=== PATIENT | female | born 1965 | race Caucasian/White ===

== ENCOUNTER 2018-08-04 07:41 | Day surgery (SDC) | payer OTHER, SELFPAY ==
[2018-08-04] VITALS (7 sets, daily range): BP systolic 107–147; BP diastolic 72–96; PULSE 71–107; RESP 14–18; TEMP 36.3–36.8; O2SAT 97–99; BMI 26.6
--- NOTE | 2018-08-04 | PATH_ITS ---
[facility] Accession Number: [id number] . 01 Material submitted: . SUBMUCOSAL MASS OF THE CECUM . 02 Diagnosis: Cecum, Submucosal Lesion, Biopsy: Colonic mucosa with no diagnostic abnormality, please see comment. Negative for serrated lesion, dysplasia or malignancy. MRV/08/07/2018 . 02 Comment: The endoscopic impression of a submucosal mass is noted; however, there is no submucosal tissue present for evaluation. . 02 Electronically signed: . Ramesh Ward MD, PhD, Pathologist NPI- [id number] . 01 Gross description: . SUBMUCOSAL MASS OF THE CECUM: Received in formalin are 2 fragment(s) of johns, soft tissue measuring 0.3 x 0.2 x 0.1 cm to 0.2 x 0.2 x 0.1 cm submitted entirely in 1 cassette(s) /CKI /CKI . 02 Pathologist provided ICD-10: D12.0 . 02 CPT . 538217 Specimen Comment: A duplicate report has been generated due to demographic updates. Performed at: 01 [facility] [address], [place], [place] [id number] MD Serg Veloz MD Phone: [phone] Performed at: 02 [facility] [address] [place], [place] [id number] MD Alyssa Echavarria MD Phone: [phone]
--- NOTE | 2018-08-04 08:16 | PM.HP.1 ---
History of Present Illness Date Patient Seen: 08/04/18 Time Patient Seen: 08:00 Chief complaint: [id number] SCREENING COLONOSCOPY Narrative: Patient is a woman here for screening colonoscopy. No family history colon cancer. No blood in her stool. She is this is her 1st colonoscopy as she just turned 52. Patient History Medical History Atypical lobular hyperplasia (ALH) of breast (Chronic) Family & Social History Social History: household members spouse Tobacco & Substance use: Smoking Status Never smoker Meds Home Medications Medication Instructions Recorded Confirmed Type anastrozole 1 mg tablet 1 mg PO DAILY 05/04/18 05/04/18 History Allergies Allergy/AdvReac Type Severity Reaction Status Date / Time Sulfa (Sulfonamide Allergy Unknown Unverified 01/04/18 12:36 Antibiotics) [SULFA (SULFONAMIDE ANTIBIOTICS)] Review of Systems Review of Systems All systems reviewed & are unremarkable except as noted in HPI and below Exam Vital Signs (past 8 hours): - 08/04/18 08:05 Temperature 98.2 F Pulse Rate 93 H Respiratory Rate 18 Blood Pressure 147/96 H Pulse Oximetry 99 Oxygen Delivery Method Room Air Narrative Exam Narrative: coOperative no apparent distress. Lungs are clear to auscultation no rales or rhonchi. heart regular rate and rhythm no murmur gallop abdomen is soft nontender without mass. Learn and oriented. Assessment & Plan (1) Screening for colon cancer: Current visit: Yes Status: Acute Plan: Assessment/Plan Narrative: Patient here for a screening colonoscopy. I have discussed the procedure and the rationale with the patient including risks of bleeding, perforation which would necessitate a major operation, failure to find remove all lesions and the potential to tattoo. They appeared to understand and wished to proceed.
--- NOTE | 2018-08-04 08:22 | PM.PREOP ---
Pre-operative Note Interval Note Pre-op Check: Yes History & Physical exam performed today by Physician Changes: No
[2018-08-04] MEDS: SODIUM CHLORIDE 0.9% 1,000 ML 200 ML IV (08:32)
[2018-08-04] MEDS: MIDAZOLAM 5 MG/5 ML VIAL IV (08:46)
[2018-08-04] MEDS: fentaNYL 250 MCG/5 ML INJ IV (08:47)
--- NOTE | 2018-08-04 09:33 | P.OP.ENDO_ITS ---
Operative Date/Time/Diagnoses Date of procedure: 08/04/18 Time of procedure: 09:17 Pre-op diagnosis: Screening exam Post-op diagnosis: same (Internal hemorrhoids. Submucosal cecal mass.) Procedure & Clinicians Study performed: Colonoscopy with cold biopsy Same procedure as scheduled: Yes Indications: Screening for colon cancer Surgeon: Malachi Allen Procedure Notes SCOAP/Timeout: Performed Procedure in detail: The patient was placed in the left lateral decubitus position and underwent IV sedation directed by the surgeon consisting of fentanyl and Versed. Digital exam was remarkable for some visible small external hemorrhoids. The scope was inserted and advanced through the rectum into the sigmoid, descending, transverse, and ascending colon. There was early looping in the process and pressure had to be applied and then a stiffener inserted in order to reach the cecum.. The cecum was reached identified by the ileocecal valve and the appendiceal opening. Adjacent to but not involving the appendiceal opening was a submucosal mass. It was rounded and well- circumscribed. When pushed on with a biopsy forcep it did not give like a lipoma but felt solid. It was not the scope visible through the wall. I took biopsies of the mucosal surface but decided not to take deep bites because I did not know if this was attached or just adjacent to the colon and fixed. Deep bites might have caused the perforation if just adjacent. It was not freely mobile in the wall of the colon. The scope was gradually brought out. No Polyps were found . The scope ultimately was retroflexed in the rectum. The appearance was remarkable for internal hemorrhoids without ulceration. The scope was removed and the patient tolerated the procedure well Scope withdrawal time: 10 min Sedation minutes: 33 Recommendations: Colonscopy in 5 years and Other recommendation (CT scan of the abdomen and pelvis. Probable cecal resection.(suspect GIST)) Plan for aftercare: See recommendations above Follow up: weeks (One) Disposition: PACU
--- NOTE | 2018-08-04 09:38 | SUR.PHASEI ---
0935: Pt is fully awake at this time, s/p colonoscopy. Pt denies pain, hemodynamically stable and ready to transition to Phase II Care at this time
== END 2018-08-04 10:10 | disposition home or self-care (01) ==
PROVIDERS: PCP Specialist; Visit Provider Specialist
PROC: 0DJD8ZZ Inspection of Lower Intestinal Tract, Via Natural or Artificial Opening Endoscopic (ICD-10-PCS; CPT 45378; principal; 2018-08-04 08:45)
DX: Z12.11 Encounter for screening for malignant neoplasm of colon (principal); K64.8 Other hemorrhoids; D12.0 Benign neoplasm of cecum
CPT/HCPCS: 45380; 99152; 99153; J2250; J3010

== ENCOUNTER → 2018-08-10 08:18 | Outpatient (CLI) | payer OTHER, SELFPAY ==
--- NOTE | 2018-08-10 08:54 | DI.CT.S_ITS ---
PROCEDURE: CT ABDOMEN PELVIS W CON INDICATIONS: Submucosal cecal mass suspect GI ST tumor. Rule out others TECHNIQUE: After the administration of oral and intravenous contrast, 5 mm thick sections acquired from the diaphragms to the symphysis. 5 mm thick coronal and sagittal reformats were performed. For radiation dose reduction, the following was used: automated exposure control, adjustment of mA and/or kV according to patient size. COMPARISON: None. FINDINGS: Image quality: Excellent. ABDOMEN: Lung bases: Lung bases are clear. Heart size is normal. Solid organs: Liver is normal in size and enhancement. Gallbladder is within normal limits. Biliary system is non-dilated. Pancreas enhances normally. Spleen is normal in size and enhancement. No adrenal nodules. Kidneys are normal in size and enhancement, without hydronephrosis. Peritoneum and bowel: Stomach, small bowel, and colon loops are normal in caliber and wall thickness. The patient's known submucosal cecal mass is not seen by CT. Contrast has not yet reached the colon. The appendix is normal. No free fluid or air. Nodes and vessels: No retroperitoneal or mesenteric adenopathy. Aorta and inferior vena cava are normal in caliber. Miscellaneous: No ventral hernias. PELVIS: Genitourinary: Bladder wall thickness is normal. 36 mm diameter mass within the right aspect of the uterus is present, consistent with a fibroid. Miscellaneous: No inguinal hernias or adenopathy. Bones: No suspicious bony lesions. No vertebral body compression fractures. IMPRESSION: 1. Nonvisualization of the patient's known submucosal cecal mass. 2. No evidence of metastatic disease to the abdomen, nor pelvis. 3. Right uterine fibroid. If the patient demonstrates symptoms referable to uterine fibroids, she may be a candidate for uterine fibroid embolization. Interventional radiology consultation can be obtained, if clinically indicated. Dictated by: Mitchell Mayes M.D. on 08/10/2018 at 10:02 Approved by: Mitchell Mayes M.D. on 08/10/2018 at 10:06
== END ==
PROVIDERS: PCP Specialist; Visit Provider Specialist
DX: D37.4 Neoplasm of uncertain behavior of colon (principal); D25.9 Leiomyoma of uterus, unspecified
CPT/HCPCS: 74177; Q9967

== ENCOUNTER 2018-09-28 06:40 | Inpatient (IN) | payer OTHER, SELFPAY ==
[2018-09-04 12:54] VITALS: BMI 26.6
[2018-09-28] VITALS (17 sets, daily range): BP systolic 92–143; BP diastolic 57–84; PULSE 66–95; RESP 12–16; TEMP 36.2–36.9; O2SAT 90–99; BMI 26.6
--- NOTE | 2018-09-28 | PATH_ITS ---
[facility] Accession Number: [id number] . 01 Material submitted: . COLON-CECUM . 01 Clinical history: . COLON-CECUM- STITCH PABLO OF SUBMUCOSAL MASS . 02 Diagnosis: Colon, Resection: 1. Ileocecal valve with prominent submucosal mature adipose tissue, consistent with lipoma. 2. Appendix with no diagnostic abnormality. 3. No evidence of atypia, epithelial dysplasia, or malignancy. 4. Please see comment. MRV/10/04/2018 . 02 Comment: The specimen was reviewed by the PA as well as Dr. Echavarria, who did not identify the abnormality described by the surgeon. The entire area beneath the stitch was submitted for evaluation and shows redundant colonic mucosa on biopsy with no submucosal mass or lesion. There is no evidence of atypia or dysplasia. . 02 Electronically signed: . Alyssa Echavarria MD, Pathologist NPI- [id number] . 01 Gross description: . Received in formalin labeled with the patient's name and colon, stitch pablo region of submucosal mass is a portion of right colon. The specimen is received stapled at the proximal margin and partially opened along the rest of the colon. This specimen includes 2 cm of terminal ileum, 6 cm of colon and a 6.0 x 0.5 cm appendix. The serosa is johns-dennis and smooth. The specimen is further opened to reveal a johns-dennis glistening mucosa with prominent folds. There is a suture on the mucosa which is received placed in the cecal pouch. No lesions are observed near the suture. The serosa and soft tissue under the suture are inked blue. The suture is located directly overlying the distal stapled mucosal margin. Sectioning reveals no lesions on cut surface adjacent to the suture as well. No lesions are present on the remaining mucosal surfaces. The suture is located 1.1 cm from the distal margin and 5.0 cm from the proximal margin. The appendix has a smooth johns serosa. Sectioning through it reveals a pinpoint lumen. Mexican Food Maker Hand sections are submitted as follows: A1 entire proximal margin; A2 entire distal margin; A3-A6 entire mucosal surface full thickness sections surrounding the suture; A6 is appendix. The specimen was also reviewed by Dr. Echavarria. Additional sections were submitted as follows: A7 - mesenteric lymph nodes; A8-A9 - random colon and ileocecal valve sections. (SB:[id number]) (JL:[id number]) / . 02 Pathologist provided ICD-10: D17.9 . 02 CPT . 696340 Performed at: [facility] [address] [id number] MD Serg Veloz MD Phone: [phone] [facility]: [facility] [address] [place], [place] [id number] MD Alyssa Echavarria MD Phone: [phone]
[2018-09-28 07:22] LABS: Add Manual Diff / Slide Review NO; Basophils Percent Auto 0.7 % (0-2); Hematocrit 46.3 % (36-46); Hemoglobin 15.9 g/dL (12.0-16.0); Lymphocytes Percent Auto 32.4 % (25-40); Mean Corpuscular HGB Conc 34.4 % (30-36); Mean Corpuscular Hemoglobin 32.2 PG (26-34); Mean Corpuscular Volume 93.6 fL (80-100); Monocytes Percent Auto 7.8 % (3-14); Neutrophils Absolute Auto 3700 /uL (1500-7000); Neutrophils Percent Auto 57.1 % (50-75); Platelet Count 235 X10^3/uL (150-400); Red Blood Cell Count 4.95 X10^6/uL (4.0-5.2); Red Cell Distribution Width 13.4 % (11.6-14.8); White Blood Cell Count 6.5 X10^3/uL (4.5-11.0)
[2018-09-28] MEDS: ENOXAPARIN 40 MG/0.4 ML SYRINGE SUBCUT (07:29)
[2018-09-28] MEDS: NEOMYCIN 500 MG TABLET 1000 MG PO ×3 (07:29→13:07)
[2018-09-28] MEDS: ERYTHROMYCIN BASE 500 MG TABLET 1000 MG PO ×3 (07:29→13:07)
[2018-09-28 07:34] LABS: Alanine Aminotransferase 40 IU/L (9-52); Albumin 4.9 g/dL (3.5-5.0); Albumin Globulin Ratio 1.6 (1.0-2.8); Alkaline Phosphatase 114 U/L (38-126); Aspartate Aminotransferase 33 IU/L (14-36); BUN Creatinine Ratio 17.5 (6-22); Bilirubin Total 0.8 mg/dL (0.2-1.3); Blood Urea Nitrogen 14 mg/dL (7-17); Calcium 10.1 mg/dL (8.4-10.2); Carbon Dioxide 25 mmol/L (22-32); Chloride 106 mmol/L (98-107); Estimated Glomerular Filt Rate > 60.0 mL/min (>60); Globulin 3.1 g/dL (1.7-4.1); Glucose 102 mg/dL (70-100); HEMOLYSIS < 15 (0-50); Potassium 4.2 mmol/L (3.4-5.1); Sodium 142 mmol/L (137-145)
--- NOTE | 2018-09-28 08:45 | PC.NURSE ---
Addendum entered by Parisa Brewster R.N. 09/28/18 13:32: Dr Allen into see Pt, consent obtained. Shortly after Dayanara NGUYỄN from PACU arrived to get Pt to preop. 1315 left floor. Chin is in room, verified contact information with him. Original Note: Am shift Pt is a/o x3, verbalizes surgery today. Completed admission assessment and placed IV cath. Per Dr Heredia Verbal orders, Pt is to consume 1/2 of provided Gatorade at 11am, without ice, otherwise remains NPO. Pt is pleasant and cooperative with care.
[2018-09-28] MEDS: LACTATED RINGERS 1,000 ML 100 ML IV (09:18)
[2018-09-28] MEDS: metroNIDAZOLE 500 MG/100 ML PIGGYBACK 100 MG IV ×2 (09:19→21:26)
[2018-09-28] MEDS: ONDANSETRON 4 MG ODT 8 MG PO (10:13)
--- NOTE | 2018-09-28 13:18 | PM.HP.1 ---
History of Present Illness Date Patient Seen: 09/28/18 Time Patient Seen: 13:00 Chief complaint: [id number] LAP RESECTION OF CECUM Narrative: The patient is woman who had a submucosal mass discovered in her cecum and a routine screening colonoscopy. This was a solid firm lesion based upon compressing it during the procedure. CT scan was performed that failed to show any other lesions and I am not certain that I could see the lesion on the CT scan though clearly it was visible on colonoscopy. It did not appear to be a lipoma. Patient is brought in for evaluation and probable cecum resection. Patient History Medical History Abnormal colonoscopy (Acute ~07/2018) Easy bruisability (Acute) Mass of colon (Acute ~07/2018) Pneumonia (Acute) Situational anxiety (Acute) Atypical lobular hyperplasia (ALH) of breast (Chronic) Family & Social History Family History: Reviewed 09/28/18 by Malachi Allen MD Social History: household members spouse,children Prior Living Arrangements House Safety & Behavioral: Feels Safe in Current Yes Environment Been Physically Hurt or No Threatened By a Person Suicidal Ideation Description None Suicide Plan Description No Plan Tobacco & Substance use: Smoking Status Former smoker Smoking packs per day 1 alcohol intake current alcohol intake frequency a few times a week Substance Use Type does not use Meds Home Medications Medication Instructions Recorded Confirmed Type anastrozole 1 mg tablet 1 mg PO DAILY 05/04/18 09/04/18 History Allergies Allergy/AdvReac Type Severity Reaction Status Date / Time Sulfa (Sulfonamide Allergy Unknown Verified 09/28/18 07:27 Antibiotics) [SULFA (SULFONAMIDE ANTIBIOTICS)] Review of Systems Review of Systems No cardiopulmonary GI or symptoms history of breast lesion on anastrozole to reduce risk of invasive cancer. No cough cold or asthma at this time. Is a nonsmoker. Exam Vital Signs (past 8 hours): Oxygen Delivery Method Room Air Narrative Exam Narrative: Operative no apparent distress. Eyes are nonicteric. No nodes in the neck supraclavicular areas. Lungs are clear to auscultation without rales or rhonchi. Heart regular rate and rhythm without murmur gallop. Abdomen is mildly protuberant soft nontender without mass or hernia. Patient is alert and oriented x3. Objective Labs Result Diagrams: 09/28/18 07:15 09/28/18 07:15 Labs: Laboratory Results - last 24 hr 09/28/18 09/28/18 07:15 07:15 WBC 6.5 RBC 4.95 Hgb 15.9 Hct 46.3 H MCV 93.6 MCH 32.2 MCHC 34.4 RDW 13.4 Plt Count 235 Neut % (Auto) 57.1 Lymph % (Auto) 32.4 [place] % (Auto) 7.8 Eos % (Auto) 2.0 Baso % (Auto) 0.7 Neut # (Auto) 3700 Sodium 142 Potassium 4.2 Chloride 106 Carbon Dioxide 25 BUN 14 Creatinine 0.80 Estimated GFR > 60.0 BUN/Creatinine Ratio 17.5 Glucose 102 H Calcium 10.1 Total Bilirubin 0.8 AST 33 ALT 40 Alkaline Phosphatase 114 Total Protein 8.0 Albumin 4.9 Globulin 3.1 Albumin/Globulin Ratio 1.6 Assessment & Plan Plan: Assessment/Plan Narrative: Patient is a woman with a solid cecal mass. This could be benign or could be a gist tumor or a carcinoid. I recommended exploration with the laparoscoped and probable cecal resection with primary anastomosis. She has had a bowel prep. She has been loaded with carbohydrate. She has taken oral antibiotics. Plan IV antibiotics as well preop. I have discussed all the risks with the patient including bleeding, infection, anastomotic leak which could lead to an ostomy. She appears to understand and wishes to proceed. Quality VTE Deep Vein Thrombosis/Pulmonary Embolism Present on Admission: No
--- NOTE | 2018-09-28 13:22 | PM.PREOP ---
Pre-operative Note Interval Note History & Physical reviewed/Exam performed by Physician: Yes Changes to H&P: No
[2018-09-28] MEDS: CEFOTETAN 2 GM/50 ML PIGGYBACK IV (15:00)
--- NOTE | 2018-09-28 15:44 | SUR.OPER ---
Lithotomy on padded OR bed. Washam Pad Positioner under torso. Head on pillow, arms padded and tucked at sides. Legs secured in padded yellow fins stirrups.
[2018-09-28] MEDS: BUPIVACAINE 0.5% (PF) VIAL 30 ML INJ (15:51)
[2018-09-28] MEDS: LACTATED RINGERS 1,000 ML 42 ML IV ×2 (15:55→17:07)
[2018-09-28] MEDS: HYDROMORPHONE 2 MG INJ 0.5 MG IV ×4 (18:19→18:37)
[2018-09-28] MEDS: fentaNYL 100 MCG/2 ML INJ 50 MCG IV ×2 (18:43→18:50)
--- NOTE | 2018-09-28 18:59 | P.OP_ITS ---
Operative Date/Time/Diagnoses Date of procedure: 09/28/18 Time of procedure: 18:00 Pre-op diagnosis: With submucosal mass in the cecum Post-op diagnosis: same Procedure & Clinicians Procedure: Resection of the terminal ileum and cecum with ileocolic anastomosis laparoscopically assisted Same procedure as scheduled: Yes Indications: Mass of unknown etiology seen on colonoscopy. Submucosal in nature. It appeared to be within the fatty tissues between the appendix, ileocecal valve and the cecum. Surgeon: Malachi Allen Pulmonology Technician: Carlos Nam Anesthesia Type: General Operative Notes Findings: Small mass not involving the mucosa. May actually involve the external wall. I did not dissect the specimen more than open the lumen. Closure Type: primary Specimen(s): other (Cecum) Implants & Drains: None Estimated Blood Loss (mL): 100 Blood products transfused: none Procedure in detail: The patient received oral and IV antibiotics and a bowel prep preoperatively. She was brought to the operating room. The patient is placed supine on the operating room table and underwent general endotracheal anesthesia. She was placed in low lithotomy and a Lucas inserted. She was prepped and draped in usual fashion. Small vertical incision was made in the infraumbilical fold carried down under direct vision in the peritoneal cavity. Stay sutures of 0 Vicryl were placed in the fascia. An Robson cannula was inserted. The abdomen was insufflated. A 2nd 5 mm port was placed in the upper midline. There were adhesions of omentum to the anterior abdominal wall in the right upper quadrant and these were sharply divided freeing most of it. This was done to allow for mobilization of the right colon. A 2nd port was of 5 mm size was placed in the midline beneath the umbilicus. The attachments of the right colon to the right sidewall were divided sharply using Estela and cautery. Cecum was well widely mobilized as was the terminal ileum. Great care was taken to avoid the ureter. It was left in its normal anatomic location. I could not identify a mass on visualization. A transverse incision was made in the skin and carried down to the anterior rectus fascia. The fascia was opened transversely. The muscle was retracted medially and laterally and not divided. Posterior fascia was opened transversely as well. The cecum was mobile as was the terminal ileum and there were easily delivered into the wound. On palpation it felt like there was a small firm mass under the subcu fat attached to portion of the cecum. This was the only abnormality I can feel and it would be consistent with what I saw on colonoscopy. Terminal ileum was divided and a limited amount of mesentery was taken with the specimen. The ascending colon was divided distal to the cecum. I chose to do this very limited resection because of uncertainty about the nature of this mass. If it is a just tumor simple resection is all that is necessary. The same probably true of a carcinoid though sometimes it is useful to have done a tay dissection. This is not a primary lung cancer. There is also a possibility the process is benign. Therefore I limited the resection. Once the specimen was removed a side of small bowel to end of colon anastomosis was created using the anti mesenteric border of the small bowel and the transected edge of the ascending colon. Was a fairly long suture line. It was done in 2 layers with a running 3 0 Vicryl internally and serum muscular silks externally seromuscular side of the posterior wall were placed 1st then the inner layer of Vicryl and then the out completion with the final layer of interrupted seromuscular silks. The mass to most this was widely patent. I was able to milk contents of the small bowel easily into and through the anastomosis. There did not appear to be any leak. The mesenteric defect was quite small and was not closed. The anastomotic area was returned to the abdomen and the abdomen irrigated and suctioned free of fluid. There did not appear to be any ongoing bleeding. The posterior rectus fascia was closed with a running 0 PDS. The muscle was irrigated and the anterior layer closed with the same material. The subcu was reapproximated with interrupted 3 0 Vicryl. The wounds in all areas were closed. The stay sutures near the umbilicus were tied. And 4 0 Vicryl subcuticular stitches were used to close the skin in all areas. It was a running suture line at the transverse incision over the rectus. The others were interrupted. Dressings were applied. The patient was awakened and taken to recovery area in good condition. Complications: none Condition: stable Disposition: PACU Plan for aftercare: Admit in patient's status
[2018-09-28] MEDS: LACTATED RINGERS 1,000 ML 125 ML IV (19:22)
[2018-09-28] MEDS: HYDROMORPHONE PCA 6 MG/30 ML PCA.VIAL IV (19:23)
--- NOTE | 2018-09-28 20:40 | PC.NURSE ---
Ruthie shift note: Patient return to PACU, awake, alert and calm. VSS and afebrile. Reports pain to abdominal incisions 3/10, states is tolerable. Band aids x 3 to mid abdomen, and small non stick dressing to left mid abdomen, CDI. FC secured draining yellow urine. IVF and SUSTAINABLE PRODUCTS MARKETING MANAGER initiated, SCDs in place. Educated regarding safe appropriate SUSTAINABLE PRODUCTS MARKETING MANAGER use. Call light within reach.
[2018-09-28] MEDS: GABAPENTIN 300 MG CAPSULE PO (21:26)
[2018-09-29] VITALS (11 sets, daily range): BP systolic 95–110; BP diastolic 58–68; PULSE 67–90; RESP 16–18; TEMP 36.5–36.7; O2SAT 93–96
--- NOTE | 2018-09-29 00:50 | PC.NURSE ---
Addendum entered by Aysha Mckenzie R.N. 09/29/18 05:44: Slept between being assisted to reposition. Used 1.4mg of MOTOR GRADER ROUGH GRADE this shift. Encouraged again to CDB but patient hesitant to cough; discussed importance to prevent post op pneumonia so eventually did cough couple times with splinting of incision and states oh, I was able to cough something up but swallowed it again. Encouraged to continue use of MOTOR GRADER ROUGH GRADE for pain control so that she is able to continue good pulmonary toilet; verbalizes understanding. Continues on 2L/min oxygen and sat is 93%. Original Note: Addendum entered by Aysha Mckenzie R.N. 09/29/18 02:21: 0130 Noted sats back down to 90% so increased oxygen to 2L/min and now sat is 92% Original Note: Patient is alert and oriented. Breath sounds CTA but noted desats to 89% when asleep so started on oxygen at 1L/min per NC with sat now at 93%. HRR. Denies nausea. BT hypoactive and denies flatus. Dressings x4 to abdomen are all CDI. Abdomen is tender and rates pain as 5/10 with movement and is described as a dull ache; encouraged to use MOTOR GRADER ROUGH GRADE and instructed in importance of keeping pain at manageable level so she can turn and CDB. Instructed also in CDB and splinting of incision. Ice pack applied to abdomen for additional comfort. Indwelling catheter is patent and urine is clear marvin. Assisted to reposition onto side as states she has not turned as yet and was hesitant to do so. Wearing bilateral SCD's. Fall risk score is moderate but bed alarm not being utilized at this time since patient is oriented and calls appropriately for assistance.
[2018-09-29] MEDS: CEFOTETAN 2 GM/50 ML PIGGYBACK IV (03:21)
[2018-09-29] MEDS: HYDROMORPHONE PCA 6 MG/30 ML PCA.VIAL IV ×3 (05:26→21:59)
[2018-09-29] MEDS: LACTATED RINGERS 1,000 ML 125 ML IV ×3 (05:26→22:35)
[2018-09-29 06:45] LABS: Add Manual Diff / Slide Review NO; Basophils Percent Auto 0.1 % (0-2); Hematocrit 38.7 % (36-46); Hemoglobin 13.5 g/dL (12.0-16.0); Lymphocytes Percent Auto 6.1 % (25-40); Mean Corpuscular HGB Conc 34.8 % (30-36); Mean Corpuscular Hemoglobin 32.3 PG (26-34); Mean Corpuscular Volume 92.9 fL (80-100); Monocytes Percent Auto 5.9 % (3-14); Neutrophils Absolute Auto 9200 /uL (1500-7000); Neutrophils Percent Auto 87.9 % (50-75); Platelet Count 209 X10^3/uL (150-400); Red Blood Cell Count 4.16 X10^6/uL (4.0-5.2); Red Cell Distribution Width 13.2 % (11.6-14.8); White Blood Cell Count 10.5 X10^3/uL (4.5-11.0)
[2018-09-29 06:49] LABS: BUN Creatinine Ratio 14.3 (6-22); Blood Urea Nitrogen 10 mg/dL (7-17); Calcium 8.7 mg/dL (8.4-10.2); Carbon Dioxide 25 mmol/L (22-32); Chloride 105 mmol/L (98-107); Estimated Glomerular Filt Rate > 60.0 mL/min (>60); Glucose 128 mg/dL (70-100); HEMOLYSIS < 15 (0-50); Magnesium 1.5 mg/dL (1.6-2.3); Potassium 4.2 mmol/L (3.4-5.1); Sodium 139 mmol/L (137-145)
[2018-09-29] MEDS: ENOXAPARIN 40 MG/0.4 ML SYRINGE SUBCUT (09:49)
[2018-09-29] MEDS: GABAPENTIN 300 MG CAPSULE PO ×2 (09:49→21:59)
[2018-09-29] MEDS: KETOROLAC 30 MG/ML VIAL IV ×2 (09:49→23:42)
[2018-09-29] MEDS: ANASTROZOLE 1 MG TABLET PO (09:50)
--- NOTE | 2018-09-29 12:06 | PC.NURSE ---
up to recliner. c/o lightheadedness with sitting and standing; laying 101/63 hr 77 sitting 100/62 hr 78 standing 96/68 hr 80 denies nausea, minor abd pain w/ freight booker and toradol. tolerating clear liquids. bowel tones hypo, no n/v. abd soft, mild tenderness., denies flatus. large amts of uop, pale yellow. ivf infusing per orders.
--- NOTE | 2018-09-29 12:59 | P.PN_ITS ---
Subjective Date Patient Seen: 09/29/18 Time Patient Seen: 12:30 Interval history: Patient having some incisional pain but otherwise feels pretty well. She is surprised that her blood pressure is so low. No nausea. Tolerating her liquids thus far. Exam Vital Signs (past 8 hours): - 09/29/18 05:28 09/29/18 08:00 09/29/18 11:54 Temperature 98.0 F Pulse Rate 90 Pulse Rate [Orthostatic Lying] Pulse Rate [Orthostatic Sitting] Pulse Rate [Orthostatic Standing] Respiratory Rate 18 Blood Pressure 110/58 L Blood Pressure [Orthostatic Lying] Blood Pressure [Orthostatic Sitting] Blood Pressure [Orthostatic Standing] Pulse Oximetry 93 94 94 09/29/18 12:03 Temperature Pulse Rate Pulse Rate [Orthostatic Lying] 77 Pulse Rate [Orthostatic Sitting] 78 Pulse Rate [Orthostatic Standing] 80 Respiratory Rate Blood Pressure Blood Pressure [Orthostatic Lying] 101/63 Blood Pressure [Orthostatic Sitting] 100/62 Blood Pressure [Orthostatic Standing] 96/68 Pulse Oximetry Oxygen Delivery Method Room Air Oxygen Flow Rate 0 Narrative Exam Narrative: Lungs excellent effort. Clear. Heart regular rate and rhythm with occasional ectopy. No murmur appreciated. Abdomen is flat. As it was preop. Soft. Dressings are dry and intact. They were not removed yet. Objective Labs Result Diagrams: 09/29/18 06:12 09/29/18 06:12 Labs: Laboratory Results - last 24 hr 09/29/18 09/29/18 06:12 06:12 WBC 10.5 D RBC 4.16 Hgb 13.5 Hct 38.7 MCV 92.9 MCH 32.3 MCHC 34.8 RDW 13.2 Plt Count 209 Neut % (Auto) 87.9 H D Lymph % (Auto) 6.1 L D [place] % (Auto) 5.9 Eos % (Auto) 0.0 L Baso % (Auto) 0.1 Neut # (Auto) 9200 H Sodium 139 Potassium 4.2 Chloride 105 Carbon Dioxide 25 BUN 10 Creatinine 0.70 Estimated GFR > 60.0 BUN/Creatinine Ratio 14.3 Glucose 128 H Calcium 8.7 Magnesium 1.5 L Assessment & Plan Post-op Postoperative Procedures Operation Date: 09/28/18 07:45 Actual Procedures Side Surgeon p Laparoscopically Assisted ColON RESECTION Not Applicable Malachi Allen MD Postoperative day: 1 Postoperative status: doing well Postoperative plan narrative: Low blood pressure may be due to the narcotics she is on. Her hematocrit is what I would expect it to be. Continue DVT prophylaxis with Lovenox and sequential compression devices. Started her back on her anastrozole. Courage ambulation when steady on her feet. Quality VTE Deep Vein Thrombosis/Pulmonary Embolism Present on Admission: No
--- NOTE | 2018-09-29 15:50 | CM.DANOTE ---
Discharge Planning/Care Management DCP: assessment: case received, EMR reviewed and met with pt. Introduced self and role. Pt is a 53 year old female who admitted yesterday for a scheduled Laprocopic resection/ subucosal cecum mass: etiology of same unclear. Surgeon: Dr. Allen. Payer: Bandar Crawford P: pt at this point expects 4-7 days in hospital for recovery and then home with her 's support. Her mother is also coming for serveral days to provide supportive care. DCP team will be following to assist with d/c issues and options as they are identified. CM Discharge Assessment Start: 09/29/18 15:44 Freq: Status: Active Protocol: Document 09/29/18 15:45 ITV (Rec: 09/29/18 15:50 ITV [id number]) Discharge Planning Assessment Advance Directives? No History Provided By Patient Has Patient been admitted in last 30 No days? Prior Living Arrangements House Household Members spouse children Independent with ADL's Yes Is patient alert and oriented? 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 # of Care Administrative Tech Review Status In Process Next Review Type Continued Stay Review Pre-Anesthesia Assessment Start: 09/04/18 12:54 Freq: Status: Complete Protocol: Document 09/04/18 12:54 CAB (Rec: 09/04/18 13:22 CAB [id number]) Pre-Anesthesia Assessment Patient Also Known As Miller (AKA) Patient Information Reviewed Via Phone Assessment Assessment Completed With Patient Primary Care Provider Bri Bennett Seen Specialist in Last 12 Months Yes Specialist Seen General surgeon Product Support Representative Primary Language French Revenue Cycle Manager Required No Height 165.1 cm Weight 72.575 kg Body Mass Index (BMI) 26.6 Hearing Ability Normal Visual Assist Glasses Dentition Type Teeth, Natural Present Barriers to Learning None Other Aids No Hx Anesthesia Reactions No: None w/sedation r/t colonoscopy, no prior surgical history Hx Family Anesthesia Reaction No Hx Malignant Hyperthermia No Hx Blood Transfusions No Anesthesia Review Requested No Power System Engineer No alcohol intake current alcohol intake frequency a few times a week Smoking Status Former smoker Smoking packs per day 1 how long ago did patient quit smoking Quit 1989, smoked 5 years Substance Use Type does not use Pain Present Pain Reported History of Falling (Recent or History of No ) Patient is completely paralyzed or No completely immobile Mental Status Oriented to own ability Is patient on oxygen? No Does patient have NAJERA/SOB No Hx Sleep Apnea No Suspected Sleep Apnea No Currently Taking a Beta Ynes No Can You Climb a Flight of Stairs Without Yes SOB Hx Chest Pain No Hx SOB No Hx Syncope or Dizziness Yes: I faint easily with blood draws Anti-Coagulant Therapy No Has a Blueprint Cutter No Cardiac Testing No Hx Pacemaker/ICD No Pacemaker Rep Required? No Cardiac Clearance Received Not Applicable Diet Type At Home Ketogenic dysphagia No Bladder Pattern Incontinent, Stress Urinary Catheter Present No Hx Urinary Self Catheterization No Diabetes No Patient No Lactating No Hx Drug Resistant Organism Yes: C-diff 1999 Presence of External or Internal Medical No Devices Have you traveled outside the [facility] in the last 30 days? Marital Status Lives With spouse children Prior Living Arrangements House Number of Floors (Floors) One Floor Number of Stairs To Enter/Railing? None Support System Parent(s) Spouse Patient Discharge Plan Description Return Home Comment Pt advised 4-7 day length of stay per surgeon's office Feels Safe in Current Environment Yes Been Physically Hurt or Threatened By a No Person in Current Environment Do you have thoughts of harming yourself None or others? Are you currently considering suicide? No Do you have a plan to hurt yourself or No Plan others? Do You Have Any Spiritual Beliefs That No May Affect Your HC Choices? Do You Have Any Cultural Practices That No May Affect Your HC Choices? Spiritual Referral None Who Can We Speak to About Patient's Care Family, friends Identifying Code for Release of Patient Declines to issue Information Health Care Proxy/Next of Kin Chin () Health Care Proxy Emergency Contact Name Chin () Emergency Contact Advance Directives? No: Declines further information Power of Wallpaper Embosser Helper No PAC Instructions Medications to take/avoid No ETOH/petroleum product on skin DOS NPO Post-op transportation Pre-surgical wash Sturdy shoes/comfortable clothes Do not bring valuables and remove jewelry
[2018-09-29] MEDS: MAGNESIUM SULFATE 2 GM/50 ML PIGGYBACK IV (17:54)
[2018-09-30] VITALS (9 sets, daily range): BP systolic 120–138; BP diastolic 75–83; PULSE 60–80; RESP 16–20; TEMP 36.4–37.2; O2SAT 92–98
[2018-09-30] MEDS: LACTATED RINGERS 1,000 ML 125 ML IV (06:42)
[2018-09-30] MEDS: GABAPENTIN 300 MG CAPSULE PO ×2 (08:51→20:03)
[2018-09-30] MEDS: ANASTROZOLE 1 MG TABLET PO (08:51)
[2018-09-30] MEDS: ENOXAPARIN 40 MG/0.4 ML SYRINGE SUBCUT (08:51)
[2018-09-30] MEDS: KETOROLAC 30 MG/ML VIAL IV ×2 (08:57→16:25)
--- NOTE | 2018-09-30 10:22 | PC.NURSE ---
Addendum entered by Harleen Marin R.N. 09/30/18 14:11: GI - up to br w/small qty med brown liq stool, pain well controlled w/fleet director and earlier toradol. Original Note: Addendum entered by Harleen Marin R.N. 09/30/18 12:26: MS/PAIN - pain well controlled w/fleet director and earlier toradol, standby assist to br w/void, then ambul hallway, gait steady, ret to chair for lunch. Original Note: AM NOTE - awake, states pain 1 when lying bed, 4 incisional discomfort when moving and mobilizing, discussed medications and demonstrates correct use fleet director, toradol has provided effective relief and given 30ml this am, + bt, no nausea, no flatus initially, enc mobilization and later after breakfast of clear liq, did have a small liq brown stool, hr reg 90, ra 95%.
--- NOTE | 2018-09-30 11:17 | PM.PN.1 ---
Subjective Date Patient Seen: 09/30/18 Time Patient Seen: 11:17 Interval history: Denies nausea or vomiting. No chest pain or shortness of breath. Feels slightly distended. Not passing flatus. Did have small bowel movement this morning. No blood or melena reported. She is urinating spontaneously without dysuria or hematuria. Tolerating some clear liquids but not particularly hungry. She is ambulating around the unit without issue. No subjective fever or chills. Exam Vital Signs (past 8 hours): - 09/30/18 04:15 09/30/18 08:30 09/30/18 09:20 Temperature 98.2 F 98 F Pulse Rate 65 80 Respiratory Rate 18 18 Blood Pressure 120/75 134/78 Pulse Oximetry 94 95 94 Oxygen Delivery Method Room Air Oxygen Flow Rate 0 Narrative Exam Narrative: Well-nourished well-developed female in no acute distress. Alert oriented x3. Family is at the bedside during my visit. Chest clear to auscultation bilaterally with regular rate and rhythm. No murmurs, gallops, rubs. No crackles or wheezes Abdomen is soft but mildly distended as anticipated. Few bowel sounds throughout. Dressings are clean, dry, and intact. No erythema of the abdominal wall. No significant ecchymosis. She is appropriately tender to palpation but without involuntary guarding or rebound. Extremities show no clubbing or cyanosis. Trace bilateral ankle edema is noted. Objective Labs Result Diagrams: 09/29/18 06:12 09/29/18 06:12 Labs: No new laboratory or radiographic studies for review today. Assessment & Plan Plan: Assessment/Plan Narrative: 53-year-old female not quite 2 days status post laparoscopic assisted partial right colectomy with ileocolonic anastomosis for submucosal cecal mass who is doing rather well. We will continue the clear liquids for now until she begins to pass some flatus and has less distention. Slow IV fluid rate however. Continue to ambulate in the hallways aggressively. Encouraged incentive spirometry as well. Continue KENNEL ASSISTANT until she has improved bowel function at which time we will convert oral analgesia. Will plan to remove her dressings tomorrow and allow her to shower if there is no evidence of any wound issues. I discussed all the above with her and her family in detail. Questions were answered to her satisfaction, and she voiced understanding. Orders were written. Quality VTE Deep Vein Thrombosis/Pulmonary Embolism Present on Admission: No
--- NOTE | 2018-09-30 11:20 | P.PN_ITS ---
Subjective Date Patient Seen: 09/30/18 Time Patient Seen: 11:17 Interval history: Denies nausea or vomiting. No chest pain or shortness of breath. Feels slightly distended. Not passing flatus. Did have small bowel movement this morning. No blood or melena reported. She is urinating spontaneously without dysuria or hematuria. Tolerating some clear liquids but not particularly hungry. She is ambulating around the unit without issue. No subjective fever or chills. Exam Vital Signs (past 8 hours): - 09/30/18 04:15 09/30/18 08:30 09/30/18 09:20 Temperature 98.2 F 98 F Pulse Rate 65 80 Respiratory Rate 18 18 Blood Pressure 120/75 134/78 Pulse Oximetry 94 95 94 Oxygen Delivery Method Room Air Oxygen Flow Rate 0 Narrative Exam Narrative: Well-nourished well-developed female in no acute distress. Alert oriented x3. Family is at the bedside during my visit. Chest clear to auscultation bilaterally with regular rate and rhythm. No murmurs , gallops, rubs. No crackles or wheezes Abdomen is soft but mildly distended as anticipated. Few bowel sounds throughout. Dressings are clean, dry, and intact. No erythema of the abdominal wall. No significant ecchymosis. She is appropriately tender to palpation but without involuntary guarding or rebound. Extremities show no clubbing or cyanosis. Trace bilateral ankle edema is noted. Objective Labs Result Diagrams: 09/29/18 06:12 09/29/18 06:12 Labs: No new laboratory or radiographic studies for review today. Assessment & Plan Plan: Assessment/Plan Narrative: 53-year-old female not quite 2 days status post laparoscopic assisted partial right colectomy with ileocolonic anastomosis for submucosal cecal mass who is doing rather well. We will continue the clear liquids for now until she begins to pass some flatus and has less distention. Slow IV fluid rate however. Continue to ambulate in the hallways aggressively. Encouraged incentive spirometry as well. Continue POOL TABLE OPERATOR until she has improved bowel function at which time we will convert oral analgesia. Will plan to remove her dressings tomorrow and allow her to shower if there is no evidence of any wound issues. I discussed all the above with her and her family in detail. Questions were answered to her satisfaction, and she voiced understanding. Orders were written. Quality VTE Deep Vein Thrombosis/Pulmonary Embolism Present on Admission: No
--- NOTE | 2018-09-30 13:37 | CM.DPC ---
DCP Cont: Checked in with patient. She was sitting up in her chair in her room. Pleasant, alert and oriented. Stated that she had seen surgeon this morning, and she is aware that she will not be discharged until they are sure that her bowels are working. Stated that she is feeling better, but still has to pass gas. Verified that she workes at [employer] in [facility], and lives at home with spouse. P: DCP to continue to follow and check in with patient. Patient should be able to return home when she is stable. Tory Whitaker RN/Lamp Assembler
[2018-09-30] MEDS: HYDROMORPHONE PCA 6 MG/30 ML PCA.VIAL IV ×2 (14:08→21:31)
[2018-09-30] MEDS: LACTATED RINGERS 1,000 ML 42 ML IV (21:29)
[2018-10-01] VITALS (9 sets, daily range): BP systolic 114–143; BP diastolic 75–97; PULSE 64–84; RESP 16–18; TEMP 36.6–37; O2SAT 92–97
[2018-10-01] MEDS: HYDROMORPHONE PCA 6 MG/30 ML PCA.VIAL IV ×2 (05:47→09:32)
[2018-10-01] MEDS: KETOROLAC 30 MG/ML VIAL IV ×2 (08:13→15:47)
[2018-10-01] MEDS: ENOXAPARIN 40 MG/0.4 ML SYRINGE SUBCUT (08:17)
[2018-10-01] MEDS: ANASTROZOLE 1 MG TABLET PO (08:17)
--- NOTE | 2018-10-01 08:39 | PM.PN.1 ---
Subjective Date Patient Seen: 10/01/18 Time Patient Seen: 08:39 Interval history: Denies flatus. Did have small liquid bowel movement or 2 yesterday. Still feels subjectively distended throughout the abdomen. No nausea or vomiting however. Appetite remains somewhat suppressed but she is tolerating clear liquids. Denies chest pain or shortness of breath. No subjective fever or chills. Ambulating without difficulty. No dysuria. Exam Vital Signs (past 8 hours): - 10/01/18 05:13 Temperature 97.9 F Pulse Rate 64 Respiratory Rate 16 Blood Pressure 122/75 Pulse Oximetry 92 Oxygen Delivery Method Room Air Oxygen Flow Rate 0 Narrative Exam Narrative: Well-nourished well-developed female in no acute distress. Alert oriented x3. Lying comfortably in bed. No fevers, tachycardia, or hypertension Urine output is adequate Chest clear to auscultation bilaterally with regular rate and rhythm. No murmurs, gallops, rubs Abdomen is soft but mildly distended and minimally tympanitic. She does have bowel sounds throughout. Dressings are removed and her incisions are all clean, dry, and intact. No erythema or significant ecchymosis. No hematomas or seromas. She is appropriately tender palpation without guarding or rebound. Extremities show no clubbing or cyanosis Objective Labs Result Diagrams: 09/29/18 06:12 09/29/18 06:12 Assessment & Plan Plan: Assessment/Plan Narrative: 53-year-old female now postoperative day 3 from laparoscopic assisted partial right colectomy with ileocolonic anastomosis who is doing rather well. Her anticipated postoperative ileus is slowly resolving. I will advance her to a full liquid diet today along with some Ensure supplementation. Discontinue the TUBE WINDER and convert oral analgesia. She may shower. Continue to ambulate aggressively. I emphasized pulmonary toilet with coughing, deep breathing, and incentive spirometry as well. Repeat laboratory studies tomorrow. If she tolerates a full liquid diet today and has ongoing bowel function then we will saline lock the IV tomorrow or later this evening and advance diet as tolerated. I discussed all the above with her at length. All questions were answered to her satisfaction, and she voiced understanding. Orders were written. Quality VTE Deep Vein Thrombosis/Pulmonary Embolism Present on Admission: No
--- NOTE | 2018-10-01 08:42 | P.PN_ITS ---
Subjective Date Patient Seen: 10/01/18 Time Patient Seen: 08:39 Interval history: Denies flatus. Did have small liquid bowel movement or 2 yesterday. Still feels subjectively distended throughout the abdomen. No nausea or vomiting however. Appetite remains somewhat suppressed but she is tolerating clear liquids. Denies chest pain or shortness of breath. No subjective fever or chills. Ambulating without difficulty. No dysuria. Exam Vital Signs (past 8 hours): - 10/01/18 05:13 Temperature 97.9 F Pulse Rate 64 Respiratory Rate 16 Blood Pressure 122/75 Pulse Oximetry 92 Oxygen Delivery Method Room Air Oxygen Flow Rate 0 Narrative Exam Narrative: Well-nourished well-developed female in no acute distress. Alert oriented x3. Lying comfortably in bed. No fevers, tachycardia, or hypertension Urine output is adequate Chest clear to auscultation bilaterally with regular rate and rhythm. No murmurs , gallops, rubs Abdomen is soft but mildly distended and minimally tympanitic. She does have bowel sounds throughout. Dressings are removed and her incisions are all clean , dry, and intact. No erythema or significant ecchymosis. No hematomas or seromas. She is appropriately tender palpation without guarding or rebound. Extremities show no clubbing or cyanosis Objective Labs Result Diagrams: 09/29/18 06:12 09/29/18 06:12 Assessment & Plan Plan: Assessment/Plan Narrative: 53-year-old female now postoperative day 3 from laparoscopic assisted partial right colectomy with ileocolonic anastomosis who is doing rather well. Her anticipated postoperative ileus is slowly resolving. I will advance her to a full liquid diet today along with some Ensure supplementation. Discontinue the CLASSIFIED COPY CONTROL CLERK and convert oral analgesia. She may shower. Continue to ambulate aggressively. I emphasized pulmonary toilet with coughing, deep breathing, and incentive spirometry as well. Repeat laboratory studies tomorrow. If she tolerates a full liquid diet today and has ongoing bowel function then we will saline lock the IV tomorrow or later this evening and advance diet as tolerated. I discussed all the above with her at length. All questions were answered to her satisfaction, and she voiced understanding. Orders were written. Quality VTE Deep Vein Thrombosis/Pulmonary Embolism Present on Admission: No
[2018-10-01] MEDS: OXYCODONE IR 5 MG TABLET PO ×3 (08:55→20:51)
[2018-10-01] MEDS: GABAPENTIN 300 MG CAPSULE PO ×2 (08:57→20:47)
--- NOTE | 2018-10-01 12:12 | PC.NURSE ---
Addendum entered by Harleen Marin R.N. 10/01/18 13:48: GI - pt states I'm passing more flatus, feels more comfortable. Original Note: AM NOTE - Pt is alert, states incisional discomfort 2 on scale 0/10, does incr to 4 when mobilizing, denies nausea, bt are active throughout and did have a med liq stool w/brown particles this am, Dr. Nam in this am and removed dsg, steri strips open air, some surrounding bruising, no drainage, discussed transition to oral pain medications, given 30mg iv toradol this am and after breakfast tolerted, 5mg po oxycodone, pain well managed on oral medication and the start up specialist was dc'd, green chainer assisted into br and pt showered, ambul hallway and sat in chair.
--- NOTE | 2018-10-01 18:49 | PC.NURSE ---
Evening Shift Note- Patient alert and oriented and able to make needs known to staff. Patient pleasant, calm, and cooperative with care. No Complaints of N/V. Patient tolerated Full Liquid Diet without issue. Abdominal surgical site DESIGN ENG with steri-strips C/D/I. Bowel tones present. Patient reports + flatus. Safety measures in place. Call gonzales and phone within reach. will continue to monitor.
[2018-10-02] VITALS (9 sets, daily range): BP systolic 123–140; BP diastolic 68–90; PULSE 68–87; RESP 16–18; TEMP 36.6–36.8; O2SAT 93–98
--- NOTE | 2018-10-02 04:37 | PC.NURSE ---
Addendum entered by Augusta Beaulieu R.N. 10/02/18 04:48: Original Note: Pt is A and O x 4, VSS. She denies pain while reclining, denies nausea. She has + BTs and had two loose stools one on day shift and one on evening shift. She has eaten cream of mushroom soup, pudding and jello. UO is clear yellow and qs. S1, S2, LS clear R side, fine crackles L LL. She is independent to the BR. Incision sites are SENIOR TECHNOLOGIST and C?
--- NOTE | 2018-10-02 04:43 | PC.NURSE ---
Pt is A and O x 4, VSS. She has had one loose BM on day shift and one on evening shift, per report. She is pass flatus. She rates her pain 1/10 when reclining, higher when she is ambulating. LS R side clear, crackles L LL. She denies nausea and is eating. S1, S2. Incision sites are CDI. Voiding qs clear yellow. Able to sleep.
[2018-10-02 06:04] LABS: BUN Creatinine Ratio 5.7 (6-22); Blood Urea Nitrogen 4 mg/dL (7-17); Calcium 8.6 mg/dL (8.4-10.2); Carbon Dioxide 30 mmol/L (22-32); Chloride 104 mmol/L (98-107); Estimated Glomerular Filt Rate > 60.0 mL/min (>60); Glucose 98 mg/dL (70-100); HEMOLYSIS < 15 (0-50); Potassium 3.6 mmol/L (3.4-5.1); Sodium 140 mmol/L (137-145)
[2018-10-02 06:09] LABS: Add Manual Diff / Slide Review NO; Basophils Percent Auto 0.6 % (0-2); Eosinophils Percent Auto 2.5 % (2-4); Hematocrit 36.9 % (36-46); Hemoglobin 12.8 g/dL (12.0-16.0); Lymphocytes Percent Auto 31.4 % (25-40); Mean Corpuscular HGB Conc 34.6 % (30-36); Mean Corpuscular Hemoglobin 32.3 PG (26-34); Mean Corpuscular Volume 93.3 fL (80-100); Monocytes Percent Auto 7.7 % (3-14); Neutrophils Absolute Auto 3700 /uL (1500-7000); Neutrophils Percent Auto 57.8 % (50-75); Platelet Count 184 X10^3/uL (150-400); Red Blood Cell Count 3.96 X10^6/uL (4.0-5.2); Red Cell Distribution Width 13.2 % (11.6-14.8); White Blood Cell Count 6.4 X10^3/uL (4.5-11.0)
--- NOTE | 2018-10-02 08:22 | P.PN_ITS ---
Subjective Date Patient Seen: 10/02/18 Time Patient Seen: 08:20 Interval history: Patient denies significant pain. Incisional pain in the right lower quadrant as well controlled with oxycodone. No nausea or vomiting. Tolerated full liquids well yesterday. Continues to pass flatus and stool. No subjective fever or chills. No chest pain or shortness of breath. Ambulating well. Exam Vital Signs (past 8 hours): - 10/02/18 06:00 Temperature 97.9 F Pulse Rate 68 Respiratory Rate 16 Blood Pressure 137/86 Pulse Oximetry 93 Oxygen Delivery Method Room Air Oxygen Flow Rate 0 Narrative Exam Narrative: Well-nourished well-developed female in no acute distress. Alert oriented x3. Regular rate and rhythm. No crackles or wheezes. Abdomen is soft and nondistended. She is not tympanitic. Wounds are clean, dry , and intact without erythema or ecchymosis. No drainage. She is appropriately tender to palpation, especially in the right lower quadrant, but without guarding or rebound tenderness Extremities show no clubbing or cyanosis Objective Labs Result Diagrams: 10/02/18 05:35 10/02/18 05:35 Labs: Laboratory Results - last 24 hr 10/02/18 10/02/18 05:35 05:35 WBC 6.4 RBC 3.96 L Hgb 12.8 Hct 36.9 MCV 93.3 MCH 32.3 MCHC 34.6 RDW 13.2 Plt Count 184 Neut % (Auto) 57.8 Lymph % (Auto) 31.4 [place] % (Auto) 7.7 Eos % (Auto) 2.5 Baso % (Auto) 0.6 Neut # (Auto) 3700 Sodium 140 Potassium 3.6 Chloride 104 Carbon Dioxide 30 BUN 4 L Creatinine 0.70 Estimated GFR > 60.0 BUN/Creatinine Ratio 5.7 L Glucose 98 Calcium 8.6 Assessment & Plan Plan: Assessment/Plan Narrative: 53-year-old female now postoperative day 4 from partial right colectomy and ileocolonic anastomosis who is doing very well. She has had return of spontaneous bowel and bladder function. Her pain is well controlled with oral analgesia. We will saline lock her IV today. Advance to a regular diet. Continue to ambulate aggressively. She may continue to shower as she wishes. If she continues to do well throughout the day today then she could possibly be discharged home this evening or thing tomorrow morning. Discussed this with her at length. All questions were answered to her satisfaction, and she voiced understanding. Orders were written. Quality VTE Deep Vein Thrombosis/Pulmonary Embolism Present on Admission: No
--- NOTE | 2018-10-02 08:31 | CM.DPC ---
DCP Cont: Per MD, pt is progressing well and has had bowel mvmts and tolerated liquid diet and will be advanced to regular diet today with aggressive ambulation and likely can d/c home tonight or tomorrow () morning and tolerates diet today. Plan: SW to follow for likely pt d/c home with supportive spouse tonight or tomorrow pending advancing to regular diet this morning. JEFFREY Davis
[2018-10-02] MEDS: GABAPENTIN 300 MG CAPSULE PO ×2 (08:35→20:30)
[2018-10-02] MEDS: ANASTROZOLE 1 MG TABLET PO (08:35)
[2018-10-02] MEDS: ENOXAPARIN 40 MG/0.4 ML SYRINGE SUBCUT (08:35)
[2018-10-02] MEDS: KETOROLAC 30 MG/ML VIAL IV ×2 (08:35→14:11)
--- NOTE | 2018-10-02 15:50 | PC.NURSE ---
GI/diet: Late entry Tolerated regular diet at lunch without N/V. Abd pain well-managed with IV Toradol. Voiding without issue. Indep with mobility, gait steady. Saline locked IV this morning. Lap sites SAMPLE DISTRIBUTOR, well-approximated with steri-strips and without active bleeding or drainage. Showered independently. Calls appropriately with needs.
[2018-10-02] MEDS: OXYCODONE IR 5 MG TABLET PO (19:09)
[2018-10-03 00:31] VITALS: BP 126/80; PULSE 72; RESP 18; TEMP 36.8; O2SAT 93
[2018-10-03 04:28] VITALS: BP 130/78; PULSE 67; RESP 17; TEMP 36.6; O2SAT 98
[2018-10-03 07:15] VITALS: BP 132/77; PULSE 66; RESP 16; TEMP 36.8; O2SAT 93
--- NOTE | 2018-10-03 07:44 | PC.NURSE ---
Addendum entered by Emma Lui R.N. 10/03/18 14:01: Discharge: No IV access. D/C paperwork provided and reviewed with patient. Given scripts for Ibuprofen, Oxycodone and Gabapentin. All belongings sent with patient at discharge. Taken out to private vehicle via wheelchair. Original Note: Addendum entered by Emma Lui R.N. 10/03/18 09:03: A&O X3. Reports feeling well this morning. Continues to tolerate general diet without N/V, has a good appetite. Reports passing liquid stool (2 this morning) and is voiding without issue. Lap sites well-approximated with steri-strips, no active bleeding or drainage. Medicated with 5 mg Oxycodone for 1/10 abd pain at rest. BT+, flatus+. Lungs CTA, HRR. Encouraged coughing, deep breathing and ongoing IS use. Able to make needs known and calls appropriately. She's hopeful she may get to go home today. Call light in reach. Original Note: Shift summary: Resting quietly in bed with eyes closed. Respirations regular and unlabored. No s/sx distress or discomfort, 0 on FLACC scale. Indep with mobility. Will complete full assessment when awake. Call light within reach.
[2018-10-03] MEDS: OXYCODONE IR 5 MG TABLET PO ×2 (08:12→12:33)
[2018-10-03] MEDS: ANASTROZOLE 1 MG TABLET PO (08:14)
[2018-10-03] MEDS: GABAPENTIN 300 MG CAPSULE PO (08:14)
[2018-10-03 09:00] VITALS: O2SAT 94
[2018-10-03 12:45] VITALS: BP 119/76; PULSE 82; RESP 16; TEMP 36.6; O2SAT 95
--- NOTE | 2018-10-03 13:11 | PM.DS.1 ---
History of Present Illness Date Patient Seen: 10/03/18 Time Patient Seen: 13:00 Chief complaint: [id number] LAP RESECTION OF CECUM Narrative: The patient is woman who had a submucosal mass discovered in her cecum and a routine screening colonoscopy. This was a solid firm lesion based upon compressing it during the procedure. CT scan was performed that failed to show any other lesions and I am not certain that I could see the lesion on the CT scan though clearly it was visible on colonoscopy. It did not appear to be a lipoma. Patient is brought in for evaluation and probable cecum resection. 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 Pathology is pending. Hospital Course: The patient had an outpatient bowel prep and received oral antibiotics preoperatively. She was taken to the operating room where she underwent resection of a small portion of her terminal ileum and the cecum which included the appendix. Her postoperative course was smooth. She was discharged tolerating a general diet with good pain control to follow up in the office. Status at Discharge Cognitive/behavioral status at discharge: Normal Functional status at discharge: independent ambulation Overall status at discharge: patient is progressing back to baseline Exam Vital Signs (past 8 hours): - 10/03/18 07:15 10/03/18 09:00 Temperature 98.3 F Pulse Rate 66 Respiratory Rate 16 Blood Pressure 132/77 Pulse Oximetry 93 94 Oxygen Delivery Method Room Air Oxygen Flow Rate 0 Objective Labs Result Diagrams: 10/02/18 05:35 10/02/18 05:35 Discharge Plan Discharge Plan Patient Disposition: Home Discharge comment: Everything has gone as expected. I will contact you when the pathology is available. If you have any problems please call our office and if it is after hours listen to the message in hold until you connected with the page in [place] machine operator. Discharge Med Rec/Prescriptions Prescriptions: New gabapentin 300 mg capsule 300 mg PO BID Qty: 14 RF: 0 ibuprofen 600 mg tablet 600 mg PO TID PRN (Reason: painful procedure) Qty: 20 RF: 0 oxycodone 5 mg tablet 5 mg PO Q4-6H PRN (Reason: painful procedure) Qty: 14 RF: 0 Continue anastrozole [Arimidex] 1 mg tablet 1 mg PO DAILY RF: 0 Follow up/Referrals: Vy Smith MD [Primary Care Provider] - Malachi Allen MD [Physician] - 10/11/18 10:30 am Provider Discharge Instructions Diet: Diet as Tolerated Diet comment: Avoid large amounts of indigestable vegetables at 1 time Activity: Avoid lifting over 10 lb or straining for the next 5 and half weeks. Avoid driving until pain free off medication. Avoid tub or pool for the next 2 weeks. You may shower. You may leisurely walk. Do not horse back ride. Skin/Wound/Dressing Care Report to your healthcare provider any signs of infection, such as:: chills, fever, night sweats, increased pain, unusual drainage and unusual redness Dressing: Antibiotic ointment may be applied to the blistered area Visit Report/Discharge Packet Instructions: DI for Colectomy, Colectomy -- Laparoscopic Surgery, Oxycodone Discharge Data Primary Care Provider: yV Smith Attending Provider: Malachi Allen Admit Date/Time: 09/28/18 06:40 Quality VTE Deep Vein Thrombosis/Pulmonary Embolism Present on Admission: No
--- NOTE | 2018-10-03 13:14 | P.DS_ITS ---
History of Present Illness Date Patient Seen: 10/03/18 Time Patient Seen: 13:00 Chief complaint: [id number] LAP RESECTION OF CECUM Narrative: The patient is woman who had a submucosal mass discovered in her cecum and a routine screening colonoscopy. This was a solid firm lesion based upon compressing it during the procedure. CT scan was performed that failed to show any other lesions and I am not certain that I could see the lesion on the CT scan though clearly it was visible on colonoscopy. It did not appear to be a lipoma. Patient is brought in for evaluation and probable cecum resection. 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 Pathology is pending. Hospital Course: The patient had an outpatient bowel prep and received oral antibiotics preoperatively. She was taken to the operating room where she underwent resection of a small portion of her terminal ileum and the cecum which included the appendix. Her postoperative course was smooth. She was discharged tolerating a general diet with good pain control to follow up in the office. Status at Discharge Cognitive/behavioral status at discharge: Normal Functional status at discharge: independent ambulation Overall status at discharge: patient is progressing back to baseline Exam Vital Signs (past 8 hours): - 10/03/18 07:15 10/03/18 09:00 Temperature 98.3 F Pulse Rate 66 Respiratory Rate 16 Blood Pressure 132/77 Pulse Oximetry 93 94 Oxygen Delivery Method Room Air Oxygen Flow Rate 0 Objective Labs Result Diagrams: 10/02/18 05:35 10/02/18 05:35 Discharge Plan Discharge Plan Patient Disposition: Home Discharge comment: Everything has gone as expected. I will contact you when the pathology is available. 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 Discharge Med Rec/Prescriptions Prescriptions: New gabapentin 300 mg capsule 300 mg PO BID Qty: 14 RF: 0 ibuprofen 600 mg tablet 600 mg PO TID PRN (Reason: painful procedure) Qty: 20 RF: 0 oxycodone 5 mg tablet 5 mg PO Q4-6H PRN (Reason: painful procedure) Qty: 14 RF: 0 Continue anastrozole [Arimidex] 1 mg tablet 1 mg PO DAILY RF: 0 Follow up/Referrals: Vy Smith MD [Primary Care Provider] - Malachi Allen MD [Physician] - 10/11/18 10:30 am Provider Discharge Instructions Diet: Diet as Tolerated Diet comment: Avoid large amounts of indigestable vegetables at 1 time Activity: Avoid lifting over 10 lb or straining for the next 5 and half weeks. Avoid driving until pain free off medication. Avoid tub or pool for the next 2 weeks. You may shower. You may leisurely walk. Do not horse back ride. Skin/Wound/Dressing Care Report to your healthcare provider any signs of infection, such as:: chills, fever, night sweats, increased pain, unusual drainage and unusual redness Dressing: Antibiotic ointment may be applied to the blistered area Visit Report/Discharge Packet Instructions: DI for Colectomy, Colectomy -- Laparoscopic Surgery, Oxycodone Discharge Data Primary Care Provider: Vy Smiht Attending Provider: Malachi Allen Admit Date/Time: 09/28/18 06:40 Quality VTE Deep Vein Thrombosis/Pulmonary Embolism Present on Admission: No
== END 2018-10-03 14:03 | disposition home or self-care (01) | DRG 983 ==
PROVIDERS: Surgery; Admitting Provider Specialist; PCP Specialist; Visit Provider Specialist
PROC: 0DTE0ZZ Resection of Large Intestine, Open Approach (ICD-10-PCS; principal; 2018-09-28 07:45)
DX: D17.79 Benign lipomatous neoplasm of other sites (principal)
CPT/HCPCS: 36415; 44205; 80048; 80053; 83735; 85025; J1100; J1170; J1650; J1885; J2250; J2405; J2704; J3010